=== PATIENT | female | born 1940 | race Caucasian/White ===

== ENCOUNTER 2018-08-10 17:10 | Emergency (ER) | payer MEDICARE ==
[~2018-08-10] VITALS: Ht 165.1 cm; Wt 86.2 kg
[2018-08-10] MEDS ORDERED: NORVASC2.5 MG PO (17:24)
[2018-08-10] MEDS ORDERED: PRILOSEC 10MG C10 MG PO (17:24)
[2018-08-10] MEDS ORDERED: ZOCOR20 MG PO (17:24)
[2018-08-10] MEDS ORDERED: COZAAR 25 MG TA25 M1 PO (17:24)
[2018-08-10] MEDS ORDERED: ALLEGRA ALLERG180 MG PO (17:25)
[2018-08-10] MEDS ORDERED: FOLIC ACID1 MG PO (17:25)
[2018-08-10 19:20] VITALS: BP 126/82
== END 2018-08-10 19:20 | disposition home or self-care (01) ==
LOC: M.ERS 17:10
DX: S01.80XA Unspecified open wound of other part of head, initial encounter (principal); H11.31 Conjunctival hemorrhage, right eye; I10 Essential (primary) hypertension; W18.39XA Other fall on same level, initial encounter; Y93.89 Activity, other specified; Y92.098 Other place in other non-institutional residence as the place of occurrence of the external cause; Y99.8 Other external cause status